=== PATIENT | male | born 1985 | race Caucasian/White ===

== ENCOUNTER 2017-12-18 03:38 | Emergency (ER) | payer BC ==
[~2017-12-18] VITALS: Ht 177.8 cm; Wt 79.4 kg
== END 2017-12-18 04:13 | disposition home or self-care (01) ==
LOC: ED 03:38
DX: R50.9 Fever, unspecified (principal); J11.1 Influenza due to unidentified influenza virus with other respiratory manifestations

== ENCOUNTER 2017-12-20 15:16 | Emergency (ER) | payer BC ==
[~2017-12-20] VITALS: Wt 81.6 kg
[2017-12-20 15:49] LABS: BILIRUBIN NEGATIVE (NEGATIVE); BLOOD 3+ (NEGATIVE); CLARITY CLEAR (CLEAR); COLOR YELLOW (YELLOW); GLUCOSE NEGATIVE (NEGATIVE); KETONE NEGATIVE (NEGATIVE); LEUKO ESTERASE NEGATIVE (NEGATIVE); NITRITE NEGATIVE (NEGATIVE); UROBILINOGEN 0.2 E.U./dl (0.2-1.0)
[2017-12-20 16:07] LABS: HEMATOCRIT 46.3 % (42.0-52.0); MEAN CORPUSCULAR HGB 30.1 pg (27.0-31.0); MEAN CORPUSCULAR HGB CONC 34.6 g/dl (33.0-37.0); MEAN PLATELET VOLUME 9.8 fl (9.6-12.3); PLATELET COUNT AUTOMATED 187 10*3/uL (130-400); RED BLOOD COUNT 5.32 10*6/uL (4.50-5.90); RED CELL DISTRI WIDTH 12.4 % (0-14.5)
[2017-12-20 16:22] LABS: ALBUMIN 3.6 gm/dl (3.1-4.5); ALKALINE PHOSPHATASE 87 U/L (45-117); BUN 11 mg/dl (7-24); CHLORIDE 103 mmol/L (98-107); CREATININE 1.15 mg/dL (0.70-1.30); LIPASE 209 U/L (73-393); POTASSIUM 3.4 mmol/L (3.5-5.1); SGOT/AST 32 IU/L (3-35); SGPT/ALT 44 U/L (12-78); SODIUM 140 mmol/L (136-145); TOTAL PROTEIN 7.9 gm/dL (6.4-8.2)
[2017-12-20 16:28] LABS: BACTERIA TRACE; WBC 21-30 wbc/hpf (0-5)
[2017-12-20 16:29] LABS: ATYPICAL LYMPHS 2 % (0-0); BASOPHILS 1 % (0-1); PLATELET SUFFICIENCY NORMAL (NORMAL); TOTAL CELLS COUNTED 100 #CELLS
[2017-12-20] MEDS ORDERED: CIPRO500 MG PO (17:38)
[2017-12-20] MEDS ORDERED: IBUPROFEN600 MG PO (17:38)
[2017-12-20] MEDS ORDERED: NORCO 5-325 TA1 EACH PO (17:41)
== END 2017-12-20 17:51 | disposition home or self-care (01) ==
LOC: ED 15:16
PROVIDERS: Physician Assistant
DX: N23 Unspecified renal colic (principal)